=== PATIENT | female | born 1935 | race Caucasian/White ===

== ENCOUNTER 2016-11-28 12:40 | Emergency (ER) | payer MEDICARE, BC ==
[2015-04-09 19:30] VITALS: BMI 26.3
[~2016-11-28 12:40] MED LIST: ALEVE220 MG PO; ANTIVERT25 MG PO; ATIVAN0.5 MG PO; BAYER CHEWABLE81 MG PO; CALCIUM 600+D T1 TA1 PO; CELEXA20 MG PO; CORDARONE200 MG PO; DESYREL50 MG PO; FISH OIL 1,0001 CA1 PO; LACTINEX GRANUL1 PCK PO; LEVOTHROID100 MCG PO; METAMUCIL PACKE1 PKT PO; MEVACOR40 MG PO; MILK OF MAGNESI30 ML PO; MIRAPEX0.25 MG PO; MYSOLINE 50 MG50 MG PO; NEURONTIN 300300 MG PO; NIASPAN500 MG PO; NITROSTAT0.4 MG SL; PLAVIX75 MG PO; PROTONIX40 MG PO; ROBAXIN500 MG PO; SYNTHROID100 MCG PO; TRIAMCINOLONE A60 M1 TP; ULTRAM50 MG PO
[2016-11-28 13:31] LABS: BASOPHILS 1.2 % (0.0-2.0); EOSINOPHILS 1.2 % (0-7); HEMATOCRIT 40.3 % (36.0-48.0); HEMOGLOBIN 12.8 g/dL (12-16); IMMATURE GRANULOCYTES 0.2 % (0-5); LYMPHOCYTES 27.2 % (15-50); MCH 30.5 pg (26.0-34.0); MCHC 31.8 g/dL (31.0-37.0); MEAN PLATELET VOLUME 11.3 fL (7.4-10.4); MONOCYTES 6.5 % (2-11); NEUTROPHILS 63.7 % (40-80); PLATELET COUNT 194 10x3/uL (130-400); RDW 13.5 % (11.5-14.5)
== END 2016-11-28 16:32 | disposition home or self-care (01) ==
LOC: D.ER 12:40
PROVIDERS: Emergency Medicine
DX: S00.83XA Contusion of other part of head, initial encounter (principal); S00.03XA Contusion of scalp, initial encounter; V89.2XXA Person injured in unspecified motor-vehicle accident, traffic, initial encounter; Y93.89 Activity, other specified; Y92.89 Other specified places as the place of occurrence of the external cause; F32.9 Major depressive disorder, single episode, unspecified; E78.5 Hyperlipidemia, unspecified; E03.9 Hypothyroidism, unspecified; Z95.0 Presence of cardiac pacemaker; N81.10 Cystocele, unspecified

== ENCOUNTER 2018-07-23 10:57 | Outpatient (CLI) | payer MEDICARE, BC ==
[~2018-07-23] VITALS: Ht 175.3 cm; Wt 75.0 kg
--- NOTE | ~2018-07-23 | HEMODYNAMI ---
PATIENT:PREM GRAY MEDICAL RECORD: [id number] : 39 LOCATION:[facility] ADMISSION DATE: 07/23/18 Generatedon:07/23/201813:52 Patient name: PREM GRAY Patient #: [id number] SSN: : 1935 Date of study: 07/23/2018 Page: Of Hemodynamic Procedure Report Patient Data Patient Demographics Procedure consent was obtained First Name: PREM Gender: Female Last Name: MARINA : 1935 Middle Initial: M Age: 82 year(s) Patient #: [id number] Race: Unknown Additional ID: [id number] Contact details Address: [place] [address] State: [place] City: [place] Zip code: [address] Past Medical History Allergies Allergen Reaction Date Comments Reported Other allergy 07/23/2018 Admission Admission Data Admission Date: 07/23/2018 Admission Time: 10:57 Height (in.): 60 BSA: 1.75 (m2) Height (cm.): 152.4 BMI: 33.4 (kg/m2) Weight (lbs.): 171 Weight (kg.): 77.56 Procedure Procedure Types Cath Procedure Diagnostic Procedure [facility] w/Coronaries PCI Procedure Coronary Stent Coronary Stent Initial Procedure Description Procedure Date Procedure Date: 07/23/2018 Procedure Start Time: 13:25 Procedure End Time: 13:51 Procedure Staff Name Function Flip Plascencia MD Performing Physician Jj Charlton RN Sprue Knocker Kimberly Arevalo RT Monitor Jj Charlton RN Nurse Ena Mathis RT Scrub Procedure Data Cath Procedure Fluoroscopy Diagnostic fluoroscopy Total fluoroscopy Time: 7.3 time: 7.3 min min Diagnostic fluoroscopy Total fluoroscopy dose: 665 dose: 665 mGy mGy Contrast Material Contrast Material Type Amount (ml) Isovue 300 94 Entry Location Entry Primary Successful Side Size Upsize Upsize Entry Closure Vincent ccessful Closure Location (Fr) 1 (Fr) 2 (Fr) Remarks Device Remarks Radial Right 6 Fr Mechanical artery Short Compression Estimated blood loss: 10 ml Diagnostic catheters Device Type Used For End Catheter Placement DIAGNOSTIC [place] 110cm 5 Procedure Fr catheter ([id number]) Procedure Complications No complications Procedure Medications Medication Administration Route Dosage 0.9% NaCl I.V. 100 ml/hr Oxygen etCO2 Nasal cannula 2 l/min Heparin Flush Bag added to field 2 bags (1000units/500ml NS) Lidocaine 2% added to field 20 Radial Cocktail added to field 1 syringe (Verapomil 2mg/Nitro 400mcg/Heparin 1500units) Benadryl I.V. 50 mg Versed I.V. 1 mg Fentanyl I.V. 50 mcg Radial Cocktail I.A. 1 syringe (Verapomil 2mg/Nitro 400mcg/Heparin 1500units) Heparin Bolus I.V. 7500 units Brilinta P.O. 180 mg Hemodynamics Rest BSA: 1.75 (m2) O2 Consumption: Estimated: 151.66 (ml/min) O2 Consumption indexed : Estimated:86.66 (ml/min/m) Heart Rate: 61 (bpm) Pressure Samples Time Site Value (mmHg) Purpose Heart Use Rate(bpm) 13:29 LV 129/-4,5 Snapshot 60 13:29 LV 132/-6,6 EDP 60 13:30 AO 111/51(72) Pullback 70 13:30 LV 143/-3,-2 Pullback 70 Gradients Valve Time Site 1 Site 2 Mean SEP/DFP Peak To Heart Use (mmHg) (sec/min) Peak Rate (mmHg) (bpm) Aortic 13:30 LV AO 30 22 32 70 143/-3,-2 111/51(72) Calculations Valve P-P Mean Valve Index Valve Source Name Gradient Area Flow (cm2) Aortic 32 30 32 30 Snapshots Pre Cath Intra NCS Post Cath Vital Signs Time Heart Resp SPO2 etCO2 NIBP (mmHg) Rhythm Pain Sedation Rate (ipm) (%) (mmHg) Status Level (bpm) 13:14:16 60 11 98 0 157/69(106) Paced 0 (11) 10(A) , No pain 13:18:38 59 18 99 0 161/69(134) Paced 0 (11) 10(A) , No pain 13:23:03 60 15 99 0 149/66(136) Paced 0 (11) 10(A) , No pain 13:27:25 60 17 99 16.5 148/65(121) Paced 0 (11) 10(A) , No pain 13:31:47 60 14 97 36.9 116/55(84) Paced 0 (11) 9(A) , No pain 13:35:57 60 18 97 39.1 116/60(102) Paced 0 (11) 9(A) , No pain 13:40:07 60 11 98 30.8 124/65(103) Paced 0 (11) 9(A) , No pain 13:44:19 60 17 97 36.1 130/68(86) Paced 0 (11) 9(A) , No pain 13:48:31 60 18 97 34.6 140/70(120) Paced 0 (11) 10(A) , No pain Medications Time Medication Route Dose Verified Delivered Reason Not es Effectiveness by by 13:14:59 0.9% NaCl I.V. 100 Jj Jj Per physician ml/hr Latesha Charlton RN RN 13:15:08 Oxygen etCO2 2 l/min Jj Jj Per physician Nasal Latesha Charlton cannula RN RN 13:15:17 Heparin Flush added 2 bags Jj Jj used for Bag to Latesha Charlton procedure (1000units/500ml RN RN NS) 13:15:27 Lidocaine 2% added 20ml Jj Jj for local to vial Latesha Charlton anesthetic RN RN 13:15:39 Radial Cocktail added 1 Jj Jj used for (Verapomil to syringe Lorigan Latesha procedure 2mg/Nitro RN RN 400mcg/Heparin 1500units) 13:15:48 Benadryl I.V. 50 mg Jj Jj Per physician Latesha Charlton RN RN 13:22:17 Versed I.V. 1 mg Jj Jj for sedation Latesha Charlton RN RN 13:22:24 Fentanyl I.V. 50 mcg Jj Jj for sedation Latesha Charlton RN RN 13:28:44 Radial Cocktail I.A. 1 Jj Flip for (Verapomil syringe Latesha Plascencia MD vasodilation 2mg/Nitro RN 400mcg/Heparin 1500units) 13:36:20 Heparin Bolus I.V. 7,500 Jj Jj for units Latesha Charlton anticoagulation RN RN 13:51:30 Brilinta P.O. 180 mg Jj Jj for Latesha Charlton antiplatelet RN RN therapy Procedure Log Time Note 12:57:40 Patient Height : 60 inches 12:57:46 Patient Weight : 171 lbs 12:59:22 Diagnostic Cath status Elective 12:59:33 Jj Charlton RN sent for patient. Start room use. 12:59:41 Time tracking: Regular hours (M-F 7:00 - 5:00) 12:59:47 Plan of Care:Hemodynamics will remain stable., Cardiac rhythm will remain stable., Comfort level will be maintained., Respiratory function will remain adequate., Patient/ family verbilizes understanding of procedure., Procedure tolerated without complication., Recovers from procedure without complications.. 13:05:39 Patient received from Pre/Post Procedure Room to CCL 2 Alert and oriented. Tansferred to table in Supine position. 13:05:41 Warm blankets applied, and erinn hugger turned on for patient comfort. 13:05:41 Correct patient and procedure confirmed by team. 13:05:43 Signed procedure consent form obtained from patient. 13:05:43 ECG and BP/O2 sat monitors applied to patient. 13:12:58 Vital chart was started 13:13:01 Baseline sample Acquired. 13:14:59 0.9% NaCl 100 ml/hr I.V. was administered by Jj Charlton RN; Per physician; 13:15:08 Oxygen 2 l/min etCO2 Nasal cannula was administered by Jj Charlton RN; Per physician; 13:15:17 Heparin Flush Bag (1000units/500ml NS) 2 bags added to field was administered by Jj Charlton RN; used for procedure; 13:15:27 Lidocaine 2% 20ml vial added to field was administered by Jj Charlton RN; for local anesthetic; 13:15:39 Radial Cocktail (Verapomil 2mg/Nitro 400mcg/Heparin 1500units) 1 syringe added to field was administered by Jj Charlton RN; used for procedure; 13:15:48 Benadryl 50 mg I.V. was administered by Jj Charlton RN; Per physician; 13:17:35 Rhythm: paced 13:17:38 Full Disclosure recording started 13:17:52 H&P Date Dictated: 07/11/2018 Within 30 days and on chart., H&P Addendum completed by physician on day of procedure. (MUST COMPLETE FOR ALL OUTPATIENTS). 13:17:54 Pre-procedure instructions explained to patient. 13:17:56 Family in waiting room. 13:17:58 Patient NPO since Midnight. 13:18:06 Patient allergic to Other allergy 13:18:09 Is the patient allergic to Iodine/contrast media? No. 13:18:12 Was the patient premedicated? Yes 13:18:14 Is patient on blood thinner?No 13:18:16 Patient diabetic? Yes. 13:18:18 If diabetic: On Metformin? No 13:18:22 Snore? Yes 13:18:23 Sleep apnea? Yes 13:18:30 Patient pain scale 0/10 ?. 13:18:37 IV patent on arrival in left antecubital with 0.9% NaCl at [facility]. 13:18:40 Lab results completed and on chart. 13:18:48 Right Radial & Right Groin area was prepped with chlora-prep and draped in sterile fashion 13:18:49 Alarms reviewed by R. N. 13:18:50 Sharps counted by scrub and verified by R.N. 13:18:52 Physician arrived 13:18:52 --------ALL STOP TIME OUT------ 13:18:54 Final Timeout: patient, procedure, and site verified with staff and physician. All members of the team are in agreement. 13:18:59 Right Radial & Right Groin site verified by team. 13:19:02 Physical assessment completed. ASA score P 2 - A patient with mild systemic disease as per Flip Plascencia MD. 13:19:07 Sedation plan: IV Moderate Sedation Medication:Versed, Fentanyl 13:19:14 Use device set Radial Dx or PCI 13:19:16 ACIST Syringe (88777) opened to sterile field. 13:19:17 Medline Cath Pack ([id number]) opened to sterile field. 13:19:17 Bag Decanter (2002) opened to sterile field. 13:19:18 DIAGNOSTIC WIRE .035 260cm J wire (055642) opened to sterile field. 13:19:19 ACIST Hand Control (73324) opened to sterile field. 13:19:19 ACIST Manifold (14088) opened to sterile field. 13:19:20 Tegaderm 4 x 4 (1626W) opened to sterile field. 13:19:21 MBrace Wrist Support ([id number]) opened to sterile field. 13:19:23 NEEDLE Cook 21G 4cm Radial (S64164) opened to sterile field. 13:19:26 SHEATH 6FR Slender (80-9080) opened to sterile field. 13:19:31 TR BAND Standard ([id number]) opened to sterile field. 13:22:17 Versed 1 mg I.V. was administered by Jj Charlton RN; for sedation; 13:22:24 Fentanyl 50 mcg I.V. was administered by Jj Charlton RN; for sedation; 13:25:34 Procedure started. 13:25:48 Local anesthetic to right radial artery with Lidocaine 2% by Flip Plascencia MD.INITIAL ACCESS ONLY 13:26:29 A 6 Fr Short sheath was inserted into the Right Radial artery 13:28:15 J wire advanced. 13:28:31 A DIAGNOSTIC [place] 110cm 5 Fr catheter (095936) was advanced over the wire and used for Procedure. 13:28:43 LV angiography performed. 13:28:44 Radial Cocktail (Verapomil 2mg/Nitro 400mcg/Heparin 1500units) 1 syringe I.A. was administered by Flip Plascencia MD; for vasodilation; 13:28:45 Zero performed for pressure channel P1 13:28:58 Zero performed for pressure channel P1 13:29:42 LV hemodynamics recorded. 13:30:03 EF : 60 % 13:30:22 LCA angiography performed. 13:31:32 RCA angiography performed. 13:34:29 Catheter removed. 13:34:33 Proceeding to intervention. 13:36:06 BMW 300cm Jackson 2 J wire (8787576P) opened to sterile field. 13:36:07 GUIDE 6FR AR 1.0 catheter ([id number]) opened to sterile field. 13:36:08 TUBING High Pressure Extension Tubing (Temo) (SI3050R) opened to sterile field. 13:36:08 INFLATOR Merit BasixCompak (DR8732) opened to sterile field. 13:36:20 Heparin Bolus 7,500 units I.V. was administered by Jj Charlton RN; for anticoagulation; 13:36:33 6 Fr AR1 guide catheter was inserted over the wire 13:37:15 BMW wire advanced. 13:42:46 Place stent Inflation Number: 1 A LISA OTW 3.0 x 38 stent ([id number]) was prepped and advanced across the Mid RCA. The stent was deployed at 14 NILAY for 0:10 (min:sec). 13:47:41 Place stent Inflation Number: 1 A LISA OTW 3.0 x 12 stent ([id number]) was prepped and advanced across the Prox RCA. The stent was deployed at 15 NILAY for 0:19 (min:sec). 13:48:08 Wire removed. 13:48:09 Guide catheter removed. 13:48:25 Sheath removed intact; hemostasis achieved with Mechanical Compression to the Right Radial artery. 13:48:34 Procedure ended.(Physican Out) 13:49:17 Fluoroscopy time 07.30 minutes. 13:49:23 Fluoroscopy dose: 665 mGy 13:49:23 Flurop Dose total: 665 13:49:27 Contrast amount:Isovue 300 94ml. 13:49:29 Sharps counted by scrub and verified by R.N. 13:49:34 TR band inflated with 11cc of air. 13:49:45 Insertion/operative site no bleeding no hematoma. 13:49:47 Post Procedure Pulses reassessed and unchanged 13:49:55 Post-procedure physical assessment completed. ASA score P 2 - A patient with mild systemic disease as per Flip Plascencia MD. 13:50:00 Post procedure rhythm: paced 13:50:04 Estimated blood loss: 10 ml 13:50:05 Post procedure instruction explained to patient.Patient verbalizes understanding. 13:50:10 Procedure type changed to Cath procedure, Diagnostic procedure, LHC, LHC w/Coronaries, PCI procedure, Coronary Stent, Coronary Stent Initial 13:50:24 Procedure and supply charges have been captured, reviewed, submitted and are correct. 13:51:01 Procedure Complication : No complications 13:51:03 Vital chart was stopped 13:51:04 See physician's report for complete and final results. 13:51:08 Report given to Pre/Post Procedure Room. 13:51:11 Patient transfered to Pre/Post Procedure Room with Stretcher. 13:51:13 Procedure ended. 13:51:13 Full Disclosure recording stopped 13:51:19 End room use (Document Last) 13:51:30 Brilinta 180 mg P.O. was administered by Jj Charlton RN; for antiplatelet therapy; 13:51:44 ACC-PCI Only Patient was given prescriptions, or instructed by Flip Plascencia MD to start/continue the following medications upon discharge: Brilinta Intervention Summary Intervention Notes Time ActionType Lesion and Equipment Action# Pressure Duration Attributes Used 13:42:46 Place stent Mid RCA LISA OTW 3.0 1 14 00:10 x 38 stent ([id number]) 13:47:41 Place stent Prox RCA LISA OTW 3.0 1 15 00:19 x 12 stent ([id number]) Device Usage Item Name Manufacture Quantity Catalog Hospital Part Current Mini mal Lot# / Number Charge Number Stock Stock Serial# Code ACIST Syringe Acist 1 76236 483562 377920 739558 20 (20393) Medical Systems Inc Medline Cath Medline 1 [id number] 957685 98374 317645 5 Pack ([id number]) Bag Decanter Microtek 1 2001S 260753 82878 755595 5 (2001S) Medical Inc. DIAGNOSTIC St [place] 1 240727 125973 142551 263599 30 WIRE .035 260cm J wire (171830) ACIST Hand Acist 1 58536 325255 011414 422304 5 Control Medical (51983) Systems Inc ACIST Acist 1 28770 255751 018692 326785 5 Manifold Medical (81020) Systems Inc Tegaderm 4 x 3M 1 1626W 664032 327690 628738 5 4 (1626W) MBrace Wrist Advanced 1 140-0250-00 984999 22918 453487 5 Support Vascular ([id number]) Dynamics NEEDLE Mesuro Medical 1 D29713 584392 538760 661966 5 21G 4cm Radial (P79796) SHEATH 6FR Terumo 1 [id number] 690033 661140 503715 40 Slender (80-1060) TR BAND Terumo 1 PKS51-SMJ 758840 217859 907618 40 Standard ([id number]) DIAGNOSTIC Terumo 1 40-0613 577996 410324 723106 5 [place] 110cm 5 Fr catheter (663089) BMW 300cm Dumont 1 [id number] 445921 869646 080031 5 Jackson 2 J Vascular wire (6464133I) GUIDE 6FR AR Medtronic 1 OG0DE78 770671 06202 943886 1 1.0 catheter (ZE9QX44) TUBING High Merit 1 [id number] 199159 18927 146520 10 Pressure Medical Extension Tubing (Plascencia) (MA7029A) INFLATOR Merit 1 MK6292 839200 406599 086111 15 Merit Medical BasixCompak (OA2872) LISA OTW 3.0 Medtronic 1 [id number] 851714 6529265 300333 5 [id number] x 38 stent ([id number]) LISA OTW 3.0 Medtronic 1 [id number] 279142 157156 322311 5 [id number] x 12 stent ([id number]) Signature Audit [place] Stage Time Signature Unsigned Intra-Procedure 07/23/2018 Kimberly Arevalo 1:52:06 PM RT(R) Signatures Monitor : Kimberly Arevalo Signature : RT Date : Time : [place] [address] [id number] [place] [address]
[2018-07-23] MEDS ORDERED: DESERYL50 M2 PO (11:26)
[2018-07-23] MEDS ORDERED: CLARITIN 10 MG10 MG PO (11:28)
[2018-07-23] MEDS ORDERED: DONEPEZIL HCL5 MG PO (11:29)
[2018-07-23] MEDS ORDERED: VITAMIN D2000 UNIT PO (11:30)
[2018-07-23] MEDS ORDERED: CEREFOLIN TAB1 TAB PO (11:30)
[2018-07-23] MEDS ORDERED: MYSOLINE 50 MG50 MG PO (11:31)
[2018-07-23 11:38] VITALS: BP 140/71; Ht 175.3 cm; Wt 75.0 kg
[2018-07-23 11:43] LABS: BASOPHILS 0.5 % (0-2); EOSINOPHILS 1.4 % (0-7); HEMATOCRIT 41.1 % (36.0-48.0); HEMOGLOBIN 13.1 g/dL (12-16); MCHC 31.9 g/dL (31.0-37.0); MCV 94.1 fL (80.0-100.0); MONOCYTES 9.1 % (2-11); PLATELET COUNT 217 10x3/uL (130-400); RBC 4.37 10x6/uL (4.00-5.40); RDW 13.4 % (11.5-14.5); WBC 4.3 10x3/uL (4.8-10.8)
[2018-07-23 11:58] LABS: CARBON DIOXIDE 30.8 mmol/L (21.0-32.0); CREATININE - SERUM 0.8 mg/dL (0.6-1.3); POTASSIUM - SERUM 3.8 mmol/L (3.5-5.1)
[2018-07-23] MEDS ORDERED: BRILINTA90 MG PO (14:15)
== END 2018-07-23 19:07 | disposition home or self-care (01) ==
LOC: D.CATH 10:57
PROVIDERS: Internal Medicine Cardiovascular Disease
DX: I25.119 Atherosclerotic heart disease of native coronary artery with unspecified angina pectoris (principal); Q24.5 Malformation of coronary vessels; T82.855A Stenosis of coronary artery stent, initial encounter; Z01.812 Encounter for preprocedural laboratory examination
CPT/HCPCS: 93458; C9600

== ENCOUNTER 2018-08-18 16:54 | Emergency (ER) | payer MEDICARE, BC ==
[~2018-08-18] VITALS: Ht 175.3 cm; Wt 73.2 kg
[~2018-08-18 16:54] MED LIST changes: +BRILINTA90 MG PO; +CEREFOLIN TAB1 TAB PO; +CLARITIN 10 MG10 MG PO; +DESERYL50 M2 PO; +DONEPEZIL HCL5 MG PO; +VITAMIN D2000 UNIT PO
[2018-08-18 17:09] VITALS: Ht 175.3 cm; Wt 73.2 kg
[2018-08-18] MEDS ORDERED: SYNTHROID175 MCG PO (17:13)
[2018-08-18] MEDS ORDERED: CIPRO500 MG PO (17:29)
[2018-08-18] MEDS ORDERED: FLAGYL500 MG PO (17:29)
[2018-08-18 17:41] LABS: BASOPHILS 0.3 % (0-2); EOSINOPHILS 0.8 % (0-7); HEMATOCRIT 41.4 % (36.0-48.0); HEMOGLOBIN 13.4 g/dL (12-16); IMMATURE GRANULOCYTES 0.2 % (0-5); LYMPHOCYTES 26.7 % (15-50); MCH 30.4 pg (26.0-34.0); MCHC 32.4 g/dL (31.0-37.0); MCV 93.9 fL (80.0-100.0); MONOCYTES 7.8 % (2-11); NEUTROPHILS 64.2 % (40-80); PLATELET COUNT 236 10x3/uL (130-400); RBC 4.41 10x6/uL (4.00-5.40); RDW 13.4 % (11.5-14.5); WBC 6.3 10x3/uL (4.8-10.8)
[2018-08-18 17:49] LABS: APPEARANCE CLEAR (CLEAR); COLOR STRAW (YELLOW); SPECIFIC GRAVITY 1.005 (1.005-1.020)
[2018-08-18 17:50] LABS: BILIRUBIN NEGATIVE (NEGATIVE); GLUCOSE NEGATIVE (NEGATIVE); KETONE NEGATIVE (NEGATIVE); NITRITE NEGATIVE (NEGATIVE); PROTEIN NEGATIVE (NEGATIVE); UROBILINOGEN NORMAL (NORMAL)
[2018-08-18 17:51] LABS: BACTERIA FEW /hpf (NONE SEEN); RED CELLS - URINE 0-5 /hpf (0-5); WHITE CELLS - URINE OCC /hpf (0-5)
[2018-08-18 18:00] LABS: AMYLASE - SERUM 75 U/L (25-115); LIPASE 234 U/L (73-393); MAGNESIUM - SERUM 1.9 mg/dL (1.8-2.4)
[2018-08-18 18:05] LABS: ALBUMIN 4.1 g/dL (3.4-5.0); ANION GAP 16.2 mmol/L (8-16); BILIRUBIN - TOTAL 0.47 mg/dL (0.2-1.3); CALCIUM 8.9 mg/dL (8.5-10.1); CARBON DIOXIDE 27.2 mmol/L (21.0-32.0); CREATININE - SERUM 0.9 mg/dL (0.6-1.3); POTASSIUM - SERUM 3.4 mmol/L (3.5-5.1); PROTEIN - SERUM 7.5 g/dL (6.4-8.2)
[2018-08-18 18:09] LABS: TROPONIN-I < 0.017 ng/mL (0.000-0.060)
[2018-08-18] MEDS ORDERED: MIRALAX17 GM PO (20:19)
[2018-08-18 20:46] VITALS: BP 164/67
== END 2018-08-18 20:47 | disposition home or self-care (01) ==
LOC: D.ER 16:54
PROVIDERS: Family Medicine
DX: K57.32 Diverticulitis of large intestine without perforation or abscess without bleeding (principal); K59.00 Constipation, unspecified; R11.10 Vomiting, unspecified; E11.9 Type 2 diabetes mellitus without complications